=== PATIENT | female | born 1970 | race Two or more races ===

== ENCOUNTER 2022-12-29 17:42 | Emergency (ER) | payer OTHER ==
[~2022-12-29] VITALS: Ht 165.1 cm; Wt 71.7 kg
[2022-12-29] MEDS ORDERED: METFORMIN HCL500 MG (17:47)
[2022-12-29 19:50] LABS: HEMATOCRIT 40.1 % (36.0-45.00); HEMOGLOBIN 13.6 g/dL (12.0-15.00); MEAN CELL VOLUME 87.5 fL (80.00-100.00); MEAN CORPUSCULAR HEMOGLOBIN 29.6 pg (27.00-32.0); MEAN CORPUSCULAR HGB CONC 33.8 g/dl (32.0-36.0); PLATELET COUNT 327 K/uL (150-450); RED BLOOD COUNT 4.58 M/uL (4.00-6.00); RED CELL DISTRIBUTION WIDTH 13.6 % (11.5-14.5)
[2022-12-29 20:08] LABS: AMYLASE 45 U/L (25-115); LIPASE 37 U/L (13-75)
[2022-12-29 20:25] LABS: PH,URINE 7.5 (5.0-8.0); URINE APPEARANCE Cloudy; URINE BILIRRUBIN Negative (NEGATIVE); URINE BLOOD Negative; URINE COLOR Yellow; URINE GLUCOSE Negative (NEGATIVE); URINE LEUKOCYTE Trace; URINE NITRATE Negative; URINE PROTEIN Negative (NEGATIVE); URINE UROBILINOGEN 0.2 E.U./dl
[2022-12-29 20:28] LABS: URINE EPITHELIAL CELLS 60.5 uL (0.0-38.8); URINE RBC 40.3 uL (0.0-20.8); URINE WBC 27.3 uL (0.0-23.2)
[2022-12-29 21:17] LABS: URINE CRYSTALS FEW /HPF; URINE MUCUS SCANT; URINE YEAST FEW /hpf
== END 2022-12-29 22:17 | disposition home or self-care (01) ==
LOC: ER 17:42 → EDBD 18:05 → ER 18:05
PROVIDERS: Emergency Medicine
DX: R07.89 Other chest pain (principal); R10.11 Right upper quadrant pain; Z88.1 Allergy status to other antibiotic agents

== ENCOUNTER 2023-01-01 20:02 | Emergency (ER) | payer OTHER ==
[~2023-01-01] VITALS: Ht 165.1 cm; Wt 71.7 kg
[~2023-01-01 20:02] MED LIST: METFORMIN HCL500 MG
[2023-01-01 22:05] LABS: HEMATOCRIT 43.1 % (36.0-45.00); MEAN CELL VOLUME 89.1 fL (80.00-100.00); MEAN CORPUSCULAR HGB CONC 32.5 g/dl (32.0-36.0); PLATELET COUNT 333 K/uL (150-450); RED BLOOD COUNT 4.84 M/uL (4.00-6.00); RED CELL DISTRIBUTION WIDTH 13.8 % (11.5-14.5)
[2023-01-01 22:08] LABS: PH,URINE 5.5 (5.0-8.0); URINE APPEARANCE Clear; URINE BILIRRUBIN Negative (NEGATIVE); URINE BLOOD NHT; URINE COLOR Yellow; URINE GLUCOSE Negative (NEGATIVE); URINE LEUKOCYTE Negative; URINE NITRATE Negative; URINE PROTEIN Negative (NEGATIVE); URINE UROBILINOGEN 0.2 E.U./dl
[2023-01-01 22:11] LABS: URINE BACTERIA 615.9 uL (0.0-1933); URINE EPITHELIAL CELLS 17.3 uL (0.0-38.8); URINE RBC 15.6 uL (0.0-20.8); URINE WBC 10.3 uL (0.0-23.2)
[2023-01-01 22:33] LABS: ALBUMIN 4.1 gm/dL (3.4-5.0); BILIRUBIN TOTAL 0.44 mg/dL (0.3-1.2); CALCIUM 9.6 mg/dL (8.5-10.1); CREATININE SERUM 0.73 mg/dL (0.55-1.02); GFR 83.39; GLOBULINA 3.9 G/DL (2.4-3.5); POTASSIUM 4.08 mEq/L (3.5-5.1)
[2023-01-01] MEDS ORDERED: INTESTINEX680 M1 PO (23:29)
[2023-01-01] MEDS ORDERED: PRILOSEC OTC20 MG PO (23:29)
[2023-01-01] MEDS ORDERED: CIPRO500 MG PO (23:29)
== END 2023-01-01 23:46 | disposition home or self-care (01) ==
LOC: ER 20:02
PROVIDERS: Nurse Practitioner Family
DX: K52.9 Noninfective gastroenteritis and colitis, unspecified (principal); E11.9 Type 2 diabetes mellitus without complications; Z79.84 Long term (current) use of oral hypoglycemic drugs; Z88.8 Allergy status to other drugs, medicaments and biological substances